=== PATIENT | male | born 1965 | race Caucasian/White ===

== ENCOUNTER → 2020-06-30 | Outpatient (CLI) | payer OTHER ==
[2016-03-09 10:56] VITALS: BP 123/84
[~2020-06-30] MED LIST: MELO7.5T29 PO; PREG75CA PO; TELM80TA PO; TRAZ-120 PO; tylenol pm PO
--- NOTE | 2020-06-30 13:33 | RAD ---
CT abdomen and pelvis without contrast PQRS statement: CT scans at this facility use dose reduction including either automated exposure cont rol, iterative reconstructions, and /or weight based radiation dosing via mA and kV modification when appropriate to reduce radiation dose to as low as reasonably achievable. HISTORY: Chronic pancreatitis. Diverticulitis. Abdominal pain. Abdomen findings: Left renal interpolar 1 cm cyst density of 4 units image 37. Right kidney, adrenals , pancreas, spleen, liver unremarkable. Cholecystectomy. No urinary calculi or hydronephrosis. Append ix is negative. No obstruction or inflammatory changes in GI tract. No abdominal fluid. Lumbar disc b ulges and facet spurring may contribute to spinal canal and neural foraminal stenoses. There are a fe w scattered sigmoid diverticuli without diverticulitis. Pelvis findings: Bladder, prostate, rectum and bones are unremarkable. Sclerotic 1 cm lesion left serenity ac crest presumably a bone island. IMPRESSION: No acute process. Appendix is negative. No urinary calculi or hydronephrosis. The pancrea s is unremarkable. Mild sigmoid diverticulosis. Electronically signed by: Rusty Mahajan MD (06/30/2020 8:52 AM) [facility]
== END ==
LOC: CT 08:25
PROVIDERS: ATTEND Family Medicine
DX: K57.30 Diverticulosis of large intestine without perforation or abscess without bleeding (principal); N28.1 Cyst of kidney, acquired; K86.1 Other chronic pancreatitis; Z90.49 Acquired absence of other specified parts of digestive tract
CPT/HCPCS: 74176